=== PATIENT | female | born 1940 | race Caucasian/White ===

== ENCOUNTER → 2016-10-21 | Outpatient (REF) | payer OTHER ==
[~2016-10-21] MED LIST: SILV-4 TOP
== END ==
LOC: M LAB REF 17:27
PROVIDERS: ATTEND Internal Medicine Medical Oncology
DX: C54.9 Malignant neoplasm of corpus uteri, unspecified (principal)

== ENCOUNTER → 2017-02-10 | Outpatient (REF) | payer OTHER | LOC: M LAB REF 16:46 | PROVIDERS: ATTEND Internal Medicine Medical Oncology | DX: C54.9 Malignant neoplasm of corpus uteri, unspecified (principal) ==

== ENCOUNTER → 2017-03-24 | Outpatient (CLI) | payer OTHER ==
[~2017-03-24] MED LIST changes: +GASTROGRAFIN SOLUTION 30ML (Q9963) As Ordered ONE; +ISOVUE-370 76% 100ML VIAL (Q9967) As Ordered ONE
--- NOTE | 2017-03-24 11:07 | REP ---
CT of the chest with IV contrast: Comparison 03/24/2017. This is outside study from [facility]). The patient has a history of endometrial carcinoma, hysterectomy, chemotherapy and radiation therapy in 2016. There are no lung masses, nodules, infiltrates or effusions. There is chronic curvilinear scarring in the right middle lobe and in the lingula. This is unchanged. There is a normal size mediastinal azygos node measuring up to 8 mm, unchanged. There is no mediastinal adenopathy. There is no hilar adenopathy. No axillary adenopathy. The thoracic aorta is unremarkable. There is occasional calcified atheroma in the coronary arteries. Cardiac size is normal. There is no pericardial effusion. There are no lytic, blastic or destructive skeletal changes. 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 Impression: No evidence of metastatic disease or adenopathy in the chest. No acute infiltrates or effusions. 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 Signed by Lamberto Corral MD 03/24/2017 10:59 A
--- NOTE | 2017-03-24 11:19 | REP ---
CT abdomen pelvis without and with IV contrast: With oral contrast. History: Carcinoma of the uterus with right leg pain, dyspnea. Question metastasis. Comparison CT study October 22, 2016 CT contrast dose: 100 ml of Isovue [address] findings: Digital preliminary supervisor contact and service clerks radiograph shows moderate stool. There is moderate to marked diffuse fatty infiltration of the liver. This was previously described. The gallbladder and pancreas are unremarkable. A large descending duodenal diverticulum is seen. No focal hepatic lesion is observed. Spleen is unremarkable. There is some thickening or hyperplasia of the left adrenal gland which was previously noted. The kidneys enhance symmetrically and are morphologically intact. There is an oval-shaped nodular enlargement along the course of the right gonadal vein just lateral to the bifurcation of the vena cava and just anterior to the psoas muscle at the level of the iliac crest. This measures 2.1 cm craniocaudal by 1.5 cm x 1.0 cm in transverse dimension. This could be a right pericaval lymph node. No pelvic mass or adenopathy is noted. Normal appendix is seen. The patient status post hysterectomy. Incidental note is made of a pedunculated lipoma in the ascending colon above the level of the ileocecal valve. This measures 2.5 cm in greatest diameter and is visible in retrospect on the prior study unchanged. Small and large intestinal bowel loops are otherwise unremarkable. No abdominal wall defect is seen. No bony destructive lesion seen. Impression: 1. Moderate diffuse fatty infiltration of the liver. 2. Stable left adrenal gland hypertrophy. 3. Incidental 2.5 cm ascending colon lipomatous polyp. 4. 2.1 x 1.5 x 1.0 cm lymph node noted adjacent to the right gonadal vein at the level of the caval bifurcation. This is a little more prominent than on the prior study and I cannot exclude a metastatic focus. This segment of the gonadal vein does appear thickened on CT localization images from June 14, [address] study from October 22, 2016. Another possibility would be gonadal vein thrombosis. The enlargement is a little more focal and more prominent today however. Signed by Jax Rowell MD 03/24/2017 04:40 P
--- NOTE | 2017-03-24 14:29 | REP ---
Whole body radionuclide bone scan: History: Uterine carcinoma. Right leg pain. Dyspnea. Technique: 22.0 mCi technetium 99m MDP is injected and standard whole body bone scan imaging was acquired. Scintigraphic findings: There is uptake in bilateral kidneys and in the urinary bladder. There is arthritic uptake in both shoulders, both feet, both knees, and both hips. Some degenerative disc uptake is seen in the thoracic spine and lumbar spine and osteoarthritic facet uptake is seen in the cervical spine. There is no evidence to suggest skeletal metastatic disease. Impression: No evidence of skeletal metastatic pattern. Signed by Jax Rowell MD 03/24/2017 04:41 P
== END ==
LOC: M RAD 08:37
PROVIDERS: ATTEND Internal Medicine Medical Oncology
DX: C55 Malignant neoplasm of uterus, part unspecified (principal); R06.09 Other forms of dyspnea; M79.604 Pain in right leg; K76.0 Fatty (change of) liver, not elsewhere classified; E27.8 Other specified disorders of adrenal gland; D12.2 Benign neoplasm of ascending colon; Q76.49 Other congenital malformations of spine, not associated with scoliosis
CPT/HCPCS: 71260; 74178; 78306; A9503; Q9963; Q9967

== ENCOUNTER → 2017-04-19 | Outpatient (CLI) | payer OTHER ==
[~2017-04-19] MED LIST changes: -GASTROGRAFIN SOLUTION 30ML (Q9963) As Ordered ONE; -ISOVUE-370 76% 100ML VIAL (Q9967) As Ordered ONE
--- NOTE | 2017-04-19 15:10 | REP ---
Whole body PET CT scan: Comparison is the CT of the chest abdomen and pelvis dated 03/24/2017. Whole body PET CT scan is performed from skull base to the upper thighs. Neck and supraclavicular areas: There are no hypermetabolic foci. Chest: There are no hypermetabolic foci. Abdomen, pelvis and upper thighs: On the comparison CT there was an enlarged pelvic lymph node adjacent to the right gonadal vein at the level of the caval bifurcation. This nodule demonstrates no F D G uptake. The standard uptake value is 1.7. There is diffuse uptake throughout the entire colon and within a few small bowel loops including the wall and lumen of the these bowel loops. This pattern is likely artifact from metformin medication, however, and colitis would be another possibility. Correlate with the patient's clinical symptoms. There are no other hypermetabolic foci. Impression: There are no hypermetabolic foci. The enlarged pelvic node on the right demonstrates no F D G uptake. The standard uptake value is 1.7. There is diffuse uptake in the wall lumen of the entire colon and a few small bowel loops. This pattern is likely artifactual from metformin medication. However, and colitis cannot be entirely discounted. Therefore, correlation with the the patient's clinical presentation is recommended. The study is performed with 10 mCi of F 18 FDG Signed by Lamberto Corral MD 04/19/2017 03:02 P
== END ==
LOC: M PLARAD 11:05
PROVIDERS: ATTEND Internal Medicine Medical Oncology
DX: C54.8 Malignant neoplasm of overlapping sites of corpus uteri (principal); R93.5 Abnormal findings on diagnostic imaging of other abdominal regions, including retroperitoneum
CPT/HCPCS: 78815; A9552

== ENCOUNTER → 2017-04-26 | Outpatient (REF) | payer OTHER | LOC: M LAB REF 12:37 | PROVIDERS: ATTEND Internal Medicine Medical Oncology | DX: C55 Malignant neoplasm of uterus, part unspecified (principal) ==

== ENCOUNTER → 2017-06-23 | Outpatient (REF) | payer OTHER | LOC: M LAB REF 13:40 | PROVIDERS: ATTEND Internal Medicine Medical Oncology | DX: C54.1 Malignant neoplasm of endometrium (principal) ==

== ENCOUNTER → 2017-08-04 | Outpatient (REF) | payer OTHER ==
[2017-08-04 20:30] LABS: FREE T4 0.83 NG/DL (0.76-1.46)
== END ==
LOC: M LAB REF 18:05
PROVIDERS: ATTEND Internal Medicine Medical Oncology
DX: C54.8 Malignant neoplasm of overlapping sites of corpus uteri (principal)

== ENCOUNTER → 2018-03-07 | Outpatient (REF) | payer OTHER ==
[2018-03-10 14:59] LABS: CA 125 11.9 U/ML (<30.2)
== END ==
LOC: M LAB REF 17:26
DX: C55 Malignant neoplasm of uterus, part unspecified (principal)
CPT/HCPCS: 86304

== ENCOUNTER → 2019-11-05 | Outpatient (CLI) | payer MEDICARE ==
[~2019-11-05] MED LIST changes: +AFRI0.0511; +ATEN100T PO; +CITA20TA6 PO; +COZA50TA PO; +FISH7.5C PO; +GLIP5TAB20 PO; +INDA125TA PO; +INVO100T PO; +JARD1TAB PO; +OCUVCAP2 PO; +PRAV10TA4 PO; +VITA1CAP25 PO
--- NOTE | 2019-11-05 12:14 | REP ---
RIGHT KNEE, FIVE VIEWS: Five views of the right knee performed. No acute fracture or dislocation is seen. There is mild lateral patellofemoral compartment narrowing with subchondral sclerosis and spurring. There is moderate narrowing of the medial and lateral joint compartments. There is associated mild subchondral sclerosis. I do not see a significant joint effusion. IMPRESSION: Moderate degenerative changes. Electronically Signed by Lamberto Cueva MD 11/05/2019 01:36 P
== END ==
LOC: M CLY 11:21
PROVIDERS: ATTEND Nurse Practitioner Family
DX: M17.11 Unilateral primary osteoarthritis, right knee (principal); M25.561 Pain in right knee; E11.69 Type 2 diabetes mellitus with other specified complication; H40.89 Other specified glaucoma; I10 Essential (primary) hypertension

== ENCOUNTER → 2019-11-05 | Outpatient (REF) | payer MEDICARE ==
[2019-11-05 18:12] LABS: BASO % 0.8 % (0.0-1.0); EOS # 0.1 10^3/uL (0.0-0.5); EOS % 1.3 % (0.0-3.0); HEMATOCRIT 40.5 % (36.0-47.0); HEMOGLOBIN 13.3 g/dl (12.0-15.5); LYMPH # 1.4 10^3/uL (1.5-5.0); LYMPH % 26.3 % (24.0-44.0); MEAN CORPUSCULAR HEMOGLOBIN 31.4 pg (27.0-33.0); MEAN CORPUSCULAR HGB CONC 32.8 g/dl (32.0-36.5); MEAN CORPUSCULAR VOLUME 95.7 fl (80.0-96.0); MONO # 0.5 10^3/uL (0.0-0.8); MONO % 9.8 % (0.0-5.0); NEUTROPHILS # 3.3 10^3/uL (1.5-8.5); PLATELET COUNT, AUTOMATED 215 10^3/uL (150-450); RED BLOOD COUNT 4.23 10^6/uL (4.00-5.40); WHITE BLOOD COUNT 5.3 10^3/uL (4.0-10.0)
[2019-11-05 18:36] LABS: ALT/SGPT 26 U/L (12-78); BILIRUBIN,TOTAL 0.5 MG/DL (0.2-1.0); BLOOD UREA NITROGEN 15 MG/DL (7-18); CALCIUM LEVEL 9.2 MG/DL (8.8-10.2); CARBON DIOXIDE LEVEL 30 MEQ/L (21-32); CHLORIDE LEVEL 102 MEQ/L (98-107); CHOLESTEROL LEVEL 207 MG/DL (<200); CHOLESTEROL RISK RATIO 3.763 (<5); CREATININE FOR GFR 0.76 MG/DL (0.55-1.30); FREE T4 1.02 NG/DL (0.76-1.46); GLOMERULAR FILTRATION RATE > 60.0 (>32); GLUCOSE, FASTING 178 MG/DL (70-100); HDL CHOLESTEROL 55 MG/DL (>40); LDL CHOLESTEROL 83 MG/DL (<100); NON-HDL-C 152 MG/DL; POTASSIUM SERUM 4.1 MEQ/L (3.5-5.1); SODIUM LEVEL 138 MEQ/L (136-145); TRIGLYCERIDES LEVEL 346 MG/DL (<150)
[2019-11-05 19:08] LABS: HEMOGLOBIN A1c 7.7 %
== END ==
LOC: M SFHCCLAY 11:15
PROVIDERS: ATTEND Nurse Practitioner Family
DX: E11.69 Type 2 diabetes mellitus with other specified complication (principal); H40.89 Other specified glaucoma; I10 Essential (primary) hypertension

== ENCOUNTER 2020-01-13 02:18 | Emergency (ER) | payer MEDICARE ==
[~2020-01-13] VITALS: Ht 144.8 cm; Wt 77.3 kg
[2020-01-13] MEDS ORDERED: METF500T13 PO (02:39)
[2020-01-13] MEDS ORDERED: TRAV04OPD OP (02:39)
[2020-01-13] MEDS ORDERED: ACETAMINOPHEN TAB 650MG DOSE (2X325MG) PO ONE (03:00)
--- NOTE | 2020-01-13 03:21 | REPVR ---
PROCEDURE INFORMATION: Exam: CT Abdomen And Pelvis Without Contrast Exam date and time: 01/13/2020 3:03 AM Age: 79 years old Clinical indication: Abdominal pain; Additional info: Right flank pain TECHNIQUE: Imaging protocol: Computed tomography of the abdomen and pelvis without contrast. Radiation optimization: All CT scans at this facility use at least one of these dose optimization techniques: automated exposure control; mA and/or kV adjustment per patient size (includes targeted exams where dose is matched to clinical indication); or iterative reconstruction. COMPARISON: CT ABD PELVIS W/O FOL BY MONIQUE 2017-03-24 10:02 FINDINGS: Liver: Enlarged low attenuating liver, evidence of hepatic steatosis. Gallbladder and bile ducts: Normal. No calcified stones. No ductal dilation. Pancreas: Normal. No ductal dilation. Spleen: Normal. No splenomegaly. Adrenals: Unchanged left adrenal gland enlargement and thickening. Kidneys and ureters: No urolithiasis. Stomach and bowel: Mild colonic diverticulosis without evidence for acute diverticulitis. Proximal colonic lipoma measuring 2.2 cm. Giant duodenal diverticulum measuring 5 cm. Appendix: No evidence of appendicitis. Intraperitoneal space: Unremarkable. No free air. No significant fluid collection. Vasculature: Mild to moderate aortic and iliac artery atherosclerotic calcification. Lymph nodes: Unremarkable. No enlarged lymph nodes. Bladder: Unremarkable as visualized. Reproductive: Hysterectomy. Bones/joints: Moderate lumbar spondylosis. Severe right hip degenerative joint disease. Moderate to severe L4-L5 spinal stenosis. Soft tissues: Laparotomy scar. IMPRESSION: 1. No acute abnormality. 2. No urolithiasis. Electronically signed by: Micah Hunt On 01/13/2020 03:21:03 AM
[2020-01-13 04:04] VITALS: O2SAT 99
[2020-01-13 04:16] VITALS: BP 158/82
== END 2020-01-13 04:17 | disposition home or self-care (01) ==
LOC: M ED 02:18
DX: M16.11 Unilateral primary osteoarthritis, right hip (principal); E11.9 Type 2 diabetes mellitus without complications; I10 Essential (primary) hypertension; M48.00 Spinal stenosis, site unspecified; M54.9 Dorsalgia, unspecified; G89.29 Other chronic pain; Z79.899 Other long term (current) drug therapy; Z79.84 Long term (current) use of oral hypoglycemic drugs

== ENCOUNTER → 2020-05-06 | Outpatient (REF) | payer MEDICARE ==
[~2020-05-06] MED LIST changes: +METF500T13 PO; +TRAV04OPD OP
[2020-05-06 13:54] LABS: BASO % 0.9 % (0.0-1.0); EOS # 0.1 10^3/uL (0.0-0.5); EOS % 2.6 % (0.0-3.0); HEMATOCRIT 38.9 % (36.0-47.0); HEMOGLOBIN 12.4 g/dl (12.0-15.5); LYMPH # 1.5 10^3/uL (1.5-5.0); LYMPH % 31.7 % (24.0-44.0); MEAN CORPUSCULAR HEMOGLOBIN 30.7 pg (27.0-33.0); MEAN CORPUSCULAR HGB CONC 31.9 g/dl (32.0-36.5); MEAN CORPUSCULAR VOLUME 96.3 fl (80.0-96.0); MONO # 0.4 10^3/uL (0.0-0.8); MONO % 8.5 % (0.0-5.0); NEUTROPHILS # 2.6 10^3/uL (1.5-8.5); NEUTROPHILS % 56.1 % (36.0-66.0); PLATELET COUNT, AUTOMATED 210 10^3/uL (150-450); RED BLOOD COUNT 4.04 10^6/uL (4.00-5.40); WHITE BLOOD COUNT 4.6 10^3/uL (4.0-10.0)
[2020-05-06 14:17] LABS: PERCENT SATURATION 18.5 % (13.2-45.0)
[2020-05-06 15:21] LABS: HEMOGLOBIN A1c 8.3 %
== END ==
LOC: M LABDRAWC 12:17
PROVIDERS: ATTEND Orthopaedic Surgery
DX: M16.11 Unilateral primary osteoarthritis, right hip (principal); M25.551 Pain in right hip; Z01.818 Encounter for other preprocedural examination

== ENCOUNTER → 2020-07-09 | Outpatient (REF) | payer MEDICARE ==
[2020-07-09 20:21] LABS: BLOOD UREA NITROGEN 22 MG/DL (7-18); CALCIUM LEVEL 9.5 MG/DL (8.8-10.2); CARBON DIOXIDE LEVEL 27 MEQ/L (21-32); CHLORIDE LEVEL 103 MEQ/L (98-107); CREATININE FOR GFR 0.77 MG/DL (0.55-1.30); GLOMERULAR FILTRATION RATE > 60.0 (>32); GLUCOSE, FASTING 240 MG/DL (70-100); POTASSIUM SERUM 4.2 MEQ/L (3.5-5.1); SODIUM LEVEL 137 MEQ/L (136-145)
[2020-07-09 21:23] LABS: HEMOGLOBIN A1c 7.2 %
== END ==
LOC: M SFHCCLAY 12:36
PROVIDERS: ATTEND Nurse Practitioner Family
DX: E11.69 Type 2 diabetes mellitus with other specified complication (principal)
CPT/HCPCS: 80048; 83036; G0463

== ENCOUNTER → 2020-11-19 | Outpatient (REF) | payer MEDICARE ==
[2020-11-19 17:05] LABS: ALBUMIN 3.9 GM/DL (3.2-5.2); ALT/SGPT 21 U/L (12-78); BILIRUBIN,TOTAL 0.3 MG/DL (0.2-1.0); BLOOD UREA NITROGEN 29 MG/DL (7-18); CALCIUM LEVEL 9.6 MG/DL (8.8-10.2); CARBON DIOXIDE LEVEL 28 MEQ/L (21-32); CHLORIDE LEVEL 103 MEQ/L (98-107); CHOLESTEROL LEVEL 188 MG/DL (<200); CHOLESTEROL RISK RATIO 3.481 (<5); CREATININE FOR GFR 0.48 MG/DL (0.55-1.30); GLOMERULAR FILTRATION RATE > 60.0 (>32); GLUCOSE, FASTING 154 MG/DL (70-100); HDL CHOLESTEROL 54 MG/DL (>40); LDL CHOLESTEROL 68 MG/DL (<100); NON-HDL-C 134 MG/DL; POTASSIUM SERUM 4.2 MEQ/L (3.5-5.1); SODIUM LEVEL 138 MEQ/L (136-145); TRIGLYCERIDES LEVEL 332 MG/DL (<150)
[2020-11-19 18:22] LABS: HEMOGLOBIN A1c 6.6 %
== END ==
LOC: M SFHCCLAY 13:48
PROVIDERS: ATTEND Nurse Practitioner Family
DX: I10 Essential (primary) hypertension (principal); E11.9 Type 2 diabetes mellitus without complications
CPT/HCPCS: 80053; 80061; 83036; G0463

== ENCOUNTER → 2020-12-10 | Outpatient (CLI) | payer MEDICARE ==
--- NOTE | 2020-12-11 03:34 | REP ---
INDICATION: M79.604 COMPARISON: None. TECHNIQUE: AP and frog-lateral views of the hip FINDINGS: Patient is noted to be status post hip replacement. There appears to be a defect along the posterior/superior aspect of the acetabular component which may reflect crack and requires correlation. The femoral component appears intact and relatively normal/propria it. Surrounding age-related degenerative changes with small amounts of heterotopic calcification noted. No acute fracture or dislocation. IMPRESSION: Somewhat irregular appearance along the rim of the acetabular replacement requires correlation and investigation. <Electronically signed by Jose Chávez > 12/11/20 [id number]
--- NOTE | 2020-12-11 03:45 | REP ---
INDICATION: M79.604 COMPARISON: None. TECHNIQUE: AP, lateral, bilateral oblique and sunrise views. FINDINGS: Given the patient's age, relatively moderate osteoarthritic degenerative changes are noted. Findings include subchondral sclerosis and joint space narrowing primarily involving the medial and patellofemoral joint spaces as well as very subtle cortical irregularity and spurring primarily noted along the lateral femoral condyle. No acute fracture or dislocation. No effusion. IMPRESSION: Relatively moderate osteoarthritic degenerative changes. <Electronically signed by Jose Chávez > 12/11/20 [id number]
== END ==
LOC: M CLY 16:10
PROVIDERS: ATTEND Family Medicine
DX: M17.11 Unilateral primary osteoarthritis, right knee (principal); M79.604 Pain in right leg; Z96.641 Presence of right artificial hip joint

== ENCOUNTER → 2021-06-04 | Outpatient (REF) | payer MEDICARE | LOC: M SFHCCLAY 12:17 | PROVIDERS: ATTEND Nurse Practitioner Family | DX: R30.0 Dysuria (principal) | CPT/HCPCS: 81002; 87086; G0463 ==

== ENCOUNTER → 2022-01-05 | Outpatient (REF) | payer MEDICARE ==
[2022-01-06 11:56] LABS: BASO # 0.1 10^3/uL (0.0-0.2); BASO % 0.7 % (0.0-1.0); EOS # 0.2 10^3/uL (0.0-0.5); EOS % 2.3 % (0.0-3.0); HEMATOCRIT 42.8 % (36.0-47.0); HEMOGLOBIN 13.3 g/dl (12.0-15.5); LYMPH # 1.7 10^3/uL (1.5-5.0); LYMPH % 19.2 % (24.0-44.0); MEAN CORPUSCULAR HGB CONC 31.1 g/dl (32.0-36.5); MEAN CORPUSCULAR VOLUME 96.4 fl (80.0-96.0); MONO # 0.9 10^3/uL (0.0-0.8); MONO % 10.1 % (2.0-8.0); NEUTROPHILS # 6.1 10^3/uL (1.5-8.5); NEUTROPHILS % 67.1 % (36.0-66.0); PLATELET COUNT, AUTOMATED 300 10^3/uL (150-450); RED BLOOD COUNT 4.44 10^6/uL (4.00-5.40)
[2022-01-06 13:05] LABS: ALBUMIN 3.6 GM/DL (3.2-5.2); ALT/SGPT 20 U/L (12-78); BILIRUBIN,TOTAL 0.2 MG/DL (0.2-1.0); BLOOD UREA NITROGEN 24 MG/DL (7-18); CALCIUM LEVEL 10.4 MG/DL (8.8-10.2); CARBON DIOXIDE LEVEL 27 MEQ/L (21-32); CHLORIDE LEVEL 102 MEQ/L (98-107); CHOLESTEROL LEVEL 168 MG/DL (<200); CREATININE FOR GFR 0.66 MG/DL (0.55-1.30); FREE T4 0.85 NG/DL (0.76-1.46); GLOMERULAR FILTRATION RATE > 60.0 (>32); GLUCOSE, FASTING 231 MG/DL (70-100); HDL CHOLESTEROL 42 MG/DL (>40); LDL CHOLESTEROL 62 MG/DL (<100); NON-HDL-C 126 MG/DL; POTASSIUM SERUM 4.7 MEQ/L (3.5-5.1); SODIUM LEVEL 137 MEQ/L (136-145); TOTAL PROTEIN 7.1 GM/DL (6.4-8.2); TRIGLYCERIDES LEVEL 318 MG/DL (<150)
[2022-01-06 13:12] LABS: CREATININE, URINE 45.2 MG/DL; MALB URINE SIEMENS 18.3 MG/L; MAU/CREAT RATIO 40.4 MCG/MG (0.0-30.0)
[2022-01-06 21:15] LABS: HEMOGLOBIN A1c 7.8 %
== END ==
LOC: M SFHCCLAY 14:57
PROVIDERS: ATTEND Nurse Practitioner Family
DX: E11.69 Type 2 diabetes mellitus with other specified complication (principal); I10 Essential (primary) hypertension